=== PATIENT | female | born 1995 | race Caucasian/White ===

== ENCOUNTER 2018-07-01 10:53 | Emergency (ER) | payer OTHER, MEDICAID ==
[~2018-07-01] VITALS: Ht 152.4 cm; Wt 52.2 kg
[~2018-07-01 10:53] MED LIST: BIRTH CONTROL; CELEXA10 MG PO; CRUTCH1 EACH MC; FLEXERIL PO; IBUPROFEN 600600 M1 PO; IBUPROFEN 800800 M1 PO
[2018-07-01] MEDS ORDERED: SERTRALINE HCL50 MG PO (11:07)
[2018-07-01] MEDS ORDERED: MEDROLDOSEPACK PO (11:40)
[2018-07-01 11:47] VITALS: BP 107/59
== END 2018-07-01 11:47 | disposition home or self-care (01) ==
LOC: M.ERS 10:53
DX: J02.9 Acute pharyngitis, unspecified (principal)

== ENCOUNTER 2018-08-10 18:23 | Emergency (ER) | payer OTHER, MEDICAID ==
[~2018-08-10] VITALS: Ht 149.9 cm; Wt 54.4 kg
[~2018-08-10 18:23] MED LIST changes: +MEDROLDOSEPACK PO; +SERTRALINE HCL50 MG PO
[2018-08-10] MEDS ORDERED: PREDNISONE 10 M10 M1 PO (18:53)
[2018-08-10] MEDS ORDERED: ZPAK PO (18:53)
[2018-08-10 19:08] VITALS: BP 124/76
== END 2018-08-10 19:09 | disposition home or self-care (01) ==
LOC: M.ERS 18:23
DX: J03.80 Acute tonsillitis due to other specified organisms (principal); B96.89 Other specified bacterial agents as the cause of diseases classified elsewhere

== ENCOUNTER 2020-05-27 09:22 | Emergency (ER) | payer OTHER, MEDICAID ==
[~2020-05-27] VITALS: Ht 152.4 cm; Wt 59.0 kg
[~2020-05-27 09:22] MED LIST changes: +PREDNISONE 10 M10 M1 PO; +ZPAK PO
[2020-05-27 10:43] VITALS: BP 121/64
== END 2020-05-27 10:44 | disposition home or self-care (01) ==
LOC: M.ERS 09:22
DX: R51.9 Headache, unspecified (principal); Z20.828 Contact with and (suspected) exposure to other viral communicable diseases

== ENCOUNTER 2021-03-30 11:51 | Emergency (ER) | payer OTHER, MEDICAID ==
[~2021-03-30] VITALS: Ht 149.9 cm; Wt 59.0 kg
[2021-03-30] MEDS ORDERED: WELLBUTRIN 75 M75 M1 PO (11:58)
[2021-03-30 13:32] LABS: URINE BILIRUBIN NEGATIVE (Negative); URINE BLOOD 2+ (Negative); URINE CLARITY CLEAR; URINE COLOR YELLOW; URINE GLUCOSE-RANDOM NEGATIVE (Negative); URINE KETONES NEGATIVE (Negative); URINE LEUKOCYTES-REFLEX NEGATIVE (Negative); URINE NITRITE-REFLEX NEGATIVE (Negative); URINE PROTEIN TRACE (Negative); URINE SPECIFIC GRAVITY 1.025 (1.005-1.030); URINE UROBILINOGEN 0.2 E.U./dl (0.2-1.0)
[2021-03-30 13:41] LABS: SQUAMOUS 0-3 Few /LPF (0-3); URINE WBC-REFLEX 0-5 Rare /HPF (0-5)
[2021-03-30 13:42] LABS: BACTERIA-REFLEX None Seen /HPF (None Seen); CASTS None Seen /LPF (None Seen); CRYSTALS None Seen /LPF (None Seen); URINE RBC 3-10 Few /HPF (0-2)
[2021-03-30 13:59] LABS: ABSOLUTE BASOPHILS 0.1 thou/uL (0.0-0.2); ABSOLUTE LYMPHOCYTES 0.9 thou/uL (0.8-5.3); ABSOLUTE MONOCYTES 0.6 thou/uL (0.0-1.2); ABSOLUTE NEUTROPHILS 13.3 thou/uL (1.6-8.1); BASOPHILS 0.6 %; EOSINOPHILS 0.2 %; HEMATOCRIT 40.4 % (37.0-47.0); HEMOGLOBIN 13.8 gm/dL (12.0-15.0); LYMPHOCYTES 6.1 %; MCH 29.6 pg (26.0-34.0); MCHC 34.2 g/dL (28.0-37.0); MCV 86.5 fL (80.0-100.0); MONOCYTES 4.3 %; MPV 7.2 fl. (7.2-11.1); NUCLEATED RBCS 0 /100WBC; PLATELET COUNT* 409 thou/uL (150-400); POLYS 88.8 %; RBC 4.67 mil/uL (4.20-5.00); RDW-CV 13.1 % (10.5-14.5); WBC 14.9 thou/uL (4.0-11.0)
[2021-03-30 14:12] LABS: CALCIUM 8.6 mg/dL (8.5-10.1); CREATININE 0.6 mg/dL (0.6-1.3); POTASSIUM 3.3 mmol/L (3.5-5.1)
[2021-03-30 14:16] LABS: ALBUMIN 3.8 g/dL (3.4-5.0); TOTAL BILIRUBIN 0.7 mg/dL (<0.1-1.0); TOTAL PROTEIN 7.5 g/dL (6.4-8.2)
[2021-03-30] MEDS ORDERED: ZOFRAN ODT4 MG PO (15:36)
[2021-03-30] MEDS ORDERED: FLEXERIL PO (15:36)
[2021-03-30 15:45] VITALS: BP 114/70
== END 2021-03-30 15:46 | disposition home or self-care (01) ==
LOC: M.ERS 11:51
PROVIDERS: Nurse Practitioner Family
DX: M54.5 Low back pain (principal); R11.2 Nausea with vomiting, unspecified

== ENCOUNTER 2021-04-12 09:33 | Emergency (ER) | payer OTHER, MEDICAID ==
[~2021-04-12] VITALS: Ht 149.9 cm; Wt 59.0 kg
[~2021-04-12 09:33] MED LIST changes: +WELLBUTRIN 75 M75 M1 PO; +ZOFRAN ODT4 MG PO
[2021-04-12] MEDS ORDERED: AMOXICILLIN 50500 MG PO (10:22)
[2021-04-12] MEDS ORDERED: PREDNISONE 20 M20 M1 PO (10:22)
[2021-04-12 10:26] VITALS: BP 122/68
== END 2021-04-12 10:27 | disposition home or self-care (01) ==
LOC: M.ERS 09:33
DX: J03.90 Acute tonsillitis, unspecified (principal)